=== PATIENT | female | born 1930 | race Caucasian/White ===

== ENCOUNTER → 2019-11-16 | Day surgery (SDC) | payer MEDICARE, BC, OTHER ==
--- NOTE | 2019-11-11 15:37 | Diagnostic Imaging Report ---
EXAMINATION: CHEST 2 VIEWS INDICATION: ^PRE-OP COMPARISON: None FINDINGS: PA and lateral views TUBES and LINES: None. LUNGS: Lungs are well inflated. There is no evidence of pneumonia or pulmonary edema. PLEURA: No pleural effusion or pneumothorax. HEART AND MEDIASTINUM: The cardiomediastinal silhouette is unremarkable. Aorta is calcified and tortuous. BONES AND SOFT TISSUES: Generalized demineralization limits evaluation. No acute osseous lesion. Multilevel degenerative changes of thoracic spine. Right shoulder arthroplasty. 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 Soft tissues are unremarkable. UPPER ABDOMEN: No free air under the diaphragm. IMPRESSION: No acute thoracic abnormality. Signed by: Dr. Rob Schulte MD on 11/11/2019 3:34 PM
[2019-11-11 16:10] LABS: BASOPHILS # (AUTO) 0.1 (0.0-0.1); BASOPHILS % 0.7 % (0.0-1.0); EOSINOPHILS # (AUTO) 0.2 (0.0-0.4); EOSINOPHILS % 3.2 % (0.0-6.0); HEMATOCRIT 33.2 % (34.2-44.1); LYMPHOCYTES # (AUTO) 3.4 (1.0-3.2); LYMPHOCYTES % 48.2 % (18.0-39.1); MEAN CORPUSCULAR HEMOGLOBIN 31.1 pg (28-32); MEAN CORPUSCULAR HGB CONC 33.1 g/dL (31-35); MEAN CORPUSCULAR VOLUME 93.8 fL (81-99); MONOCYTES # (AUTO) 0.4 (0.2-0.8); MONOCYTES % 6.2 % (4.4-11.3); NEUTROPHILS # (AUTO) 2.9 (2.1-6.9); NEUTROPHILS % 41.4 % (38.7-80.0); PLATELET COUNT 268 x10e3/uL (140-360); RED BLOOD COUNT 3.54 x10e6/uL (3.6-5.1); RED CELL DISTRIBUTION WIDTH 13.2 % (11.7-14.4)
[~2019-11-16] MED LIST: ACETAMINOPHEN 1000 MG/100 ML 100 ML IV ONE; ARMOUR THYROID60 MG PO; ASPIR 8181 MG; CALCIUM CARBON500 MG PO; CENTRUM SILVER1 EAC3; CRESTOR10 MG; DEXAMETHASONE SOD PHOS INJ 4 MG/ML VIAL ONE; DOCUSATE SODIU100 MG PO; EPINEPHRINE HCL 1:1000 1ML 1 MG/ML AMP ONE; ESTER-C 1,0001 EACH; ETOMIDATE 2 MG/ML 10 ML INJ IV ONE; FISH OIL 1,2001 EACH; FLAX OIL1000 MG; FLUTICASONE PROP5 GM; GARLIQUE; LABETALOL HCL 0 ML ONE; LIDOCAINE 1% W/EPINEPHRINE 20 ML VIAL ONE; LIDOCAINE HCL (LTA) 4 ML SOLN ONE; LIDOCAINE HCL 2% JELLY 5 ML TUBE ONE; LIDOCAINE HCL 2% LOCAL INJ 5 ML SDV VIAL INJ ONE; LOSARTAN POTAS100 MG PO; METHYL B-12; MODAFINIL200 MG PO; NORCO 10-325 T1 EACH PO; OMEPRAZOLE40 MG; ONDANSETRON HCL INJ 2MG/ML 2ML 2 MG/ML VIAL ONE; OSTEO BI-FLEX1 EAC2; OXYMETAZOLINE HCL 0.05% NAS 1 SPRAY BTL ONE; POTASSIUM CHLO10 ME1 PO; SEVOFLURANE INHAL SOLN 250 ML PEN BTL ONE; SILVER NITRATE SWABS ONE; SUCCINYLCHOLINE CHLORIDE 20 MG/ML 10ML VIAL ONE; ZYRTEC10 M3
--- NOTE | 2019-11-16 09:27 | Operative Report ---
DATE OF PROCEDURE: 11/16/2019 SURGEON: Deniz Matta MD PREOPERATIVE DIAGNOSIS: Right nasal cavity mass. POSTOPERATIVE DIAGNOSIS: Right nasal cavity mass. PROCEDURE: Endoscopic excision of right nasal cavity mass. SIGNIFICANT FINDINGS: Friable mass with sessile attachment involving the right nasal cavity floor, inferior meatus, and undersurface of the inferior turbinate. RACE STEWARD: None. ANESTHESIA: General endotracheal tube anesthesia. SPECIMENS REMOVED: Right nasal cavity mass. ESTIMATED BLOOD LOSS: 40 mL. COMPLICATIONS: None. INDICATIONS: The patient is an 89-year-old white female with 4 months history of right-sided epistaxis. The patient has a soft tissue mass in the right anterior nasal cavity. CT sinus performed on 10/28/2019 revealed clear sinuses, but there is a right nasal cavity mass. On examination, there is a purplish friable soft tissue mass filling the right anterior nasal cavity. She is scheduled for endoscopic excision of right nasal cavity mass under general anesthesia. Risks and complications of the procedure were thoroughly discussed with the patient, her daughter, and granddaughter and they include infection, bleeding, scarring, failure to improve, need for additional operations, possibility of malignancy and need for further treatment and surgery, poor external cosmetic appearance of the nose, persistent nose bleeding, inability to smell or taste, damage to visual pathways causing double vision and blindness, leakage of brain fluid, exsanguination, chronic pain, need for blood transfusions, damage to surrounding nerves, blood vessels, and muscles. They fully understand and gave consent. DESCRIPTION OF PROCEDURE: The patient was taken to the operating room and placed supine on the operating table where general anesthesia was achieved through orotracheal intubation. Two pieces of cottonoid pledgets soaked with Afrin were inserted around the mass in the right nasal cavity. No nasal masses were present in the left nasal cavity. The face was prepped and draped in the usual sterile fashion. Cottonoid pledgets were then removed. Gentle manipulation of the mass revealed it to be attached laterally and inferiorly in a broad-based sessile attachment. The mass was then removed by trimming with scissors along its inferior and lateral attachments. This was sent for permanent section analysis. Further inspection with a 0-degree rigid nasal endoscope revealed residual friable tissue, involving the majority of the right nasal cavity floor as well as the right inferior meatus and the undersurface of the right inferior turbinate. Further residual tissue which were grossly abnormal were then debrided with the microdebrider using O-degree nasal endoscope. Hemostasis was then obtained with suction cautery as well as cottonoid pledgets soaked with Afrin. The cottonoid pledgets soaked with Afrin were then removed. Surgicel was then placed over the involved mucosa, followed by the use of the remaining Surgicel as an absorbable pack in the right nasal cavity. The patient was awakened in the operating room, extubated, and taken to the recovery room in good condition. Deniz Matta MD JKY/MODL /[id number] MTDD
[2019-11-16 09:50] VITALS: BP 162/83
== END | disposition home or self-care (01) ==
LOC: OR 05:26
PROVIDERS: ATTEND Otolaryngology
DX: C30.0 Malignant neoplasm of nasal cavity (principal); M54.9 Dorsalgia, unspecified; I10 Essential (primary) hypertension; K21.9 Gastro-esophageal reflux disease without esophagitis; M19.90 Unspecified osteoarthritis, unspecified site; Z88.0 Allergy status to penicillin; Z88.8 Allergy status to other drugs, medicaments and biological substances; Z01.810 Encounter for preprocedural cardiovascular examination; Z01.812 Encounter for preprocedural laboratory examination; Z01.818 Encounter for other preprocedural examination; Z11.59 Encounter for screening for other viral diseases; Z79.82 Long term (current) use of aspirin; Z86.73 Personal history of transient ischemic attack (TIA), and cerebral infarction without residual deficits
CPT/HCPCS: 36415; 71046; 85025; 88304; 88305; 88342; 93005; J0171; J0330; J1100; J2001; J2405; U0002